=== PATIENT | female | born 1945 | race Hispanic/Latino ===

== ENCOUNTER 2018-08-04 20:42 | Emergency (ER) | payer MEDICARE ==
[~2018-08-04 20:42] MED LIST: BIMA12.5OS OD; IBUP200C5 PO; LOSA50TA25 PO; ROSU40 PO
== END 2018-08-04 21:27 | disposition home or self-care (01) ==
LOC: EDH 20:42
DX: S40.021A Contusion of right upper arm, initial encounter (principal); W46.0XXA Contact with hypodermic needle, initial encounter; Y93.89 Activity, other specified; Y92.238 Other place in hospital as the place of occurrence of the external cause; Y99.8 Other external cause status
CPT/HCPCS: 99281

== ENCOUNTER 2018-09-06 14:29 | Emergency (ER) | payer MEDICARE ==
[2018-09-06] MEDS ORDERED: SODIUM CHLORIDE 0.9% 1000ML 1,000 ML IV ONE (14:43)
[2018-09-06] MEDS ORDERED: DILTIAZEM HCL 5 MG/ML 10 ML VIAL IV ONE (14:44)
[2018-09-06 14:49] LABS: BASOPHILS % (AUTO) 0.7 % (0.0-5.0); EOSINOPHILS % (AUTO) 1.7 % (0.0-8.0); HEMATOCRIT 44.2 % (36-48); LYMPHOCYTES % (AUTO) 22.4 % (21.0-51.0); MEAN CORPUSCULAR HEMOGLOBIN 30.5 pg (27.0-33.0); MEAN CORPUSCULAR HGB CONC 33.4 g/dL (32.0-36.0); MEAN CORPUSCULAR VOLUME 91.1 fL (79-99); MONOCYTES % (AUTO) 7.8 % (3.0-13.0); NEUTROPHILS % (AUTO) 67.4 % (40.0-77.0); NUCLEATED RED BLOOD CELLS 0.1 % (0.0-0.19); PLATELET COUNT (AUTO) 132 K/uL (130-400); RED BLOOD CELL COUNT(AUTO) 4.85 MIL/uL (4.00-5.50); RED CELL DISTRIBUTION WIDTH 13.3 % (11.0-15.5); WHITE BLOOD COUNT (AUTO) 6.3 K/uL (4.8-10.8)
[2018-09-06 15:00] LABS: CREATININE 0.9 mg/dL (0.5-1.5); POTASSIUM 4.1 mmol/L (3.5-5.1)
[2018-09-06 15:12] LABS: APPEARANCE,URINE Clear (CLEAR); BILIRUBIN,URINE Negative (NEGATIVE); COLOR,URINE Dark Yellow (YELLOW); GLUCOSE, URINE (UA) Negative (NEGATIVE); KETONES,URINE Trace mg/dL (NEGATIVE); LEUKOCYTE ESTERASE ,URINE Small (NEGATIVE); NITRATE,URINE Negative (NEGATIVE); OCCULT BLOOD,URINE Negative (NEGATIVE); PH,URINE 5.5 (5.0-8.0); PROTEIN,URINE Negative (NEGATIVE)
[2018-09-06] MEDS ORDERED: ENOXAPARIN SODIUM 100 MG/1 ML SQ ONE (15:28)
[2018-09-06 15:50] LABS: BACTERIA,URINE Few /HPF (None Seen); RBC,URINE 0-1 /HPF (0-1)
[2018-09-06 15:53] LABS: MUCUS,URINE Rare LPF (None Seen); SQUAMOUS EPITHELIAL CELL,UR Few /HPF (0-2)
[2018-09-06 15:56] LABS: AMPHET/METH SCREEN,URINE NEGATIVE (NEGATIVE); BARBITURATE SCREEN, URINE NEGATIVE (NEGATIVE); BENZODIAZEPINES SCREEN,URINE NEGATIVE (NEGATIVE); CANNABINOID SCREEN,URINE NEGATIVE (NEGATIVE); COCAINE SCREEN,URINE NEGATIVE (NEGATIVE); OPIATE SCREEN,URINE NEGATIVE (NEGATIVE); PHENCYCLIDINE SCREEN,URINE NEGATIVE (NEGATIVE)
[2018-09-06 16:09] LABS: T4 (THYROXINE) 9.1 mcg/dL (4.7-13.3); THYROID STIMULATING HORMONE 2.44 uIU/mL (0.36-3.74)
[2018-09-06 17:36] LABS: INR 0.98 (0.85-1.15); PARTIAL THROMBOPLASTIN TIME 28.4 SEC (26.3-35.5); PROTHROMBIN TIME 10.3 SEC (9.6-11.6)
== END 2018-09-06 17:25 | disposition home or self-care (01) ==
LOC: EDH 14:29
DX: I48.91 Unspecified atrial fibrillation (principal); I10 Essential (primary) hypertension; Z98.890 Other specified postprocedural states
CPT/HCPCS: 36415; 80048; 80305; 81001; 84436; 84443; 85025; 85610; 85730; 93005 ×2; 96372; 96374; 99291; J1650; J3490; J7030

== ENCOUNTER → 2018-10-16 | Outpatient (CLI) | payer MEDICARE | END | disposition home or self-care (01) | LOC: SHCH 13:47 | PROVIDERS: ATTEND Internal Medicine Cardiovascular Disease | DX: I34.1 Nonrheumatic mitral (valve) prolapse (principal) | CPT/HCPCS: 93306 ==

== ENCOUNTER → 2019-07-18 | Outpatient (CLI) | payer MEDICARE ==
[~2019-07-18] MED LIST changes: -LOSA50TA25 PO; +METO-391 PO; +RIVA20TA PO; -ROSU40 PO
== END | disposition home or self-care (01) ==
LOC: RAH 13:55
PROVIDERS: ATTEND Family Medicine
DX: Z12.31 Encounter for screening mammogram for malignant neoplasm of breast (principal); D24.2 Benign neoplasm of left breast
CPT/HCPCS: 77067

== ENCOUNTER → 2019-07-26 | Outpatient (CLI) | payer MEDICARE | END | disposition home or self-care (01) | LOC: RAH 09:40 | PROVIDERS: ATTEND Family Medicine | DX: R10.10 Upper abdominal pain, unspecified (principal); R11.0 Nausea | CPT/HCPCS: 78227; A9537 ==

== ENCOUNTER → 2019-08-17 | Outpatient (CLI) | payer MEDICARE | END | disposition home or self-care (01) | LOC: RAH 08:42 | PROVIDERS: ATTEND Family Medicine | DX: N28.1 Cyst of kidney, acquired (principal); K76.89 Other specified diseases of liver; R16.1 Splenomegaly, not elsewhere classified | CPT/HCPCS: 76700 ==

== ENCOUNTER 2019-11-06 05:44 | Day surgery (SDC) | payer MEDICARE ==
[2019-11-01 11:30] LABS: BASOPHILS % (AUTO) 0.7 % (0.0-5.0); EOSINOPHILS % (AUTO) 2.9 % (0.0-8.0); HEMATOCRIT 44.2 % (36-48); LYMPHOCYTES % (AUTO) 17.8 % (21.0-51.0); MEAN CORPUSCULAR HEMOGLOBIN 29.7 pg (27.0-33.0); MEAN CORPUSCULAR HGB CONC 31.7 g/dL (32.0-36.0); MEAN CORPUSCULAR VOLUME 93.8 fL (79-99); MONOCYTES % (AUTO) 7.3 % (3.0-13.0); PLATELET COUNT (AUTO) 166 K/uL (130-400); RED BLOOD CELL COUNT(AUTO) 4.71 MIL/uL (4.00-5.50); RED CELL DISTRIBUTION WIDTH 12.9 % (11.0-15.5); WHITE BLOOD COUNT (AUTO) 5.9 K/uL (4.8-10.8)
[2019-11-01 11:37] LABS: CREATININE 0.7 mg/dL (0.5-1.5); POTASSIUM 4.9 mmol/L (3.5-5.1)
[2019-11-01 11:38] VITALS: BP 120/59
[2019-11-06] VITALS (17 sets, daily range): BP systolic 101–141; BP diastolic 49–77
[~2019-11-06] VITALS: Ht 165.1 cm; Wt 89.7 kg
[~2019-11-06 05:44] MED LIST changes: -BIMA12.5OS OD; +BIMA12.5OS OU; -IBUP200C5 PO; -METO-391 PO; +METO50TA9 PO; +ROSU10TA28 PO; +SODIUM CHLORIDE 0.9% 1000ML 1,000 ML IV SCH; +TYL3B PO
[2019-11-06] MEDS ORDERED: LACTATED RINGERS 1000ML 1,000 ML IV ONE (06:38)
--- NOTE | 2019-11-06 06:55 | NUR ---
SX SCD APPLIED TO BLE
[2019-11-06] MEDS ORDERED: MIDAZOLAM HCL 1 MG/ML 2ML VIAL ONE (07:14)
[2019-11-06] MEDS ORDERED: HEPARIN SODIUM 1000UNIT/ML 10ML VIAL ONE (07:14)
[2019-11-06] MEDS ORDERED: PROPOFOL 10 MG/ML 20ML VIAL IV ONE (07:14)
[2019-11-06] MEDS ORDERED: ROCURONIUM 10MG/1ML SYR 10 MG/ML ML ONE (07:14)
[2019-11-06] MEDS ORDERED: FENTANYL CITRATE PF 50 MCG/1 ML 2ML VIAL ONE (07:15)
[2019-11-06] MEDS ORDERED: DEXAMETHASONE SOD PHOSPHATE 4 MG/ML 1ML VIAL ONE (08:03)
[2019-11-06] MEDS ORDERED: ONDANSETRON HCL 4 MG/2 ML VIAL ONE ×2 (08:10→09:17)
[2019-11-06] MEDS ORDERED: PHENYLEPHRINE HCL 10 MG/ML 1ML VIAL IV ONE (08:10)
[2019-11-06] MEDS ORDERED: GLYCOPYRROLATE 1 MG/5 ML SYRINGE ONE (08:11)
[2019-11-06] MEDS ORDERED: NEOSTIGMINE 5MG/5ML SYR IV ONE (08:11)
[2019-11-06] MEDS ORDERED: KETOROLAC TROMETHAMINE 30MG/ML ONE (08:33)
[2019-11-06] MEDS ORDERED: MEPERIDINE-PF 25 MG/ML SYG ONE ×2 (08:57→09:08)
== END 2019-11-06 10:35 | disposition home or self-care (01) ==
LOC: DAH 05:44
PROVIDERS: ATTEND Surgery
DX: K80.10 Calculus of gallbladder with chronic cholecystitis without obstruction (principal); I10 Essential (primary) hypertension; E78.5 Hyperlipidemia, unspecified; I48.0 Paroxysmal atrial fibrillation; E66.01 Morbid (severe) obesity due to excess calories; Z68.31 Body mass index [BMI] 31.0-31.9, adult; Z98.890 Other specified postprocedural states; Z79.899 Other long term (current) drug therapy
CPT/HCPCS: 36415; 47562; 80048; 85025; 88305; 93005; A4215; A4221; A4222; A4223; A4450; A4600; A4663; A6260; C1769 ×4; J1100; J1644; J1885; J2175 ×2; J2250; J2370; J2405 ×2; J2704; J2710; J3010; J3490; J7030; J7120 ×2

== ENCOUNTER → 2020-07-18 | Outpatient (CLI) | payer MEDICARE ==
[~2020-07-18] MED LIST changes: -SODIUM CHLORIDE 0.9% 1000ML 1,000 ML IV SCH; -TYL3B PO
== END | disposition home or self-care (01) ==
LOC: RAH 15:12
PROVIDERS: ATTEND Family Medicine
DX: Z12.31 Encounter for screening mammogram for malignant neoplasm of breast (principal)
CPT/HCPCS: 77067

== ENCOUNTER → 2022-07-26 | Outpatient (CLI) | payer MEDICARE | END | disposition home or self-care (01) | LOC: RAH 14:52 | PROVIDERS: ATTEND Family Medicine | DX: Z12.31 Encounter for screening mammogram for malignant neoplasm of breast (principal) | CPT/HCPCS: 77067 ==

== ENCOUNTER 2023-01-02 19:17 | Emergency (ER) | payer MEDICARE ==
[~2023-01-02] VITALS: Ht 170.2 cm; Wt 97.3 kg
[2023-01-02 19:43] VITALS: BP 145/83
[2023-01-02 21:24] LABS: BASOPHILS % (AUTO) 0.3 % (0.0-5.0); HEMATOCRIT 41.9 % (36-48); LYMPHOCYTES % (AUTO) 20.1 % (21.0-51.0); MEAN CORPUSCULAR HEMOGLOBIN 30.2 pg (27.0-33.0); MEAN CORPUSCULAR HGB CONC 32.7 g/dL (32.0-36.0); MEAN CORPUSCULAR VOLUME 92.3 fL (79-99); NEUTROPHILS % (AUTO) 67.9 % (40.0-77.0); PLATELET COUNT (AUTO) 124 K/uL (130-400); RED BLOOD CELL COUNT(AUTO) 4.54 MIL/uL (4.00-5.50); RED CELL DISTRIBUTION WIDTH 13.8 % (11.0-15.5); WHITE BLOOD COUNT (AUTO) 6.8 K/uL (4.8-10.8)
[2023-01-02 21:30] LABS: CREATININE 1.1 mg/dL (0.5-1.5); POTASSIUM 3.9 mmol/L (3.5-5.1)
[2023-01-02 21:35] LABS: ALBUMIN 3.5 g/dL (3.5-5.0); TOTAL PROTEIN, SERUM 6.1 g/dL (6.0-8.3)
[2023-01-02] MEDS ORDERED: AMOX1TAB16 PO (21:51)
[2023-01-02] MEDS ORDERED: CEFTRIAXONE 1G VIAL IVP ONE (22:00)
== END 2023-01-02 22:12 | disposition home or self-care (01) ==
LOC: EDH 19:17
DX: L03.113 Cellulitis of right upper limb (principal); E78.00 Pure hypercholesterolemia, unspecified; I10 Essential (primary) hypertension; Z90.49 Acquired absence of other specified parts of digestive tract; Z79.899 Other long term (current) drug therapy; Z98.890 Other specified postprocedural states
CPT/HCPCS: 99284; 80053; 85025; 36415; 73130; J0696

== ENCOUNTER 2023-02-26 12:31 | Emergency (ER) | payer MEDICARE ==
[~2023-02-26] VITALS: Ht 167.6 cm; Wt 97.1 kg
[~2023-02-26 12:31] MED LIST changes: +AMOX1TAB16 PO; +MACR100 PO
[2023-02-26 13:30] VITALS: BP 150/80
== END 2023-02-26 13:42 | disposition home or self-care (01) ==
LOC: EDH 12:31
DX: S05.12XA Contusion of eyeball and orbital tissues, left eye, initial encounter (principal); E78.00 Pure hypercholesterolemia, unspecified; E11.9 Type 2 diabetes mellitus without complications; X58.XXXA Exposure to other specified factors, initial encounter; Y93.89 Activity, other specified; Y92.89 Other specified places as the place of occurrence of the external cause; Y99.8 Other external cause status
CPT/HCPCS: 99281

== ENCOUNTER → 2024-01-21 | Outpatient (CLI) | payer MEDICARE | END | disposition home or self-care (01) | LOC: SHCH 07:34 | PROVIDERS: ATTEND Internal Medicine Cardiovascular Disease | DX: I34.0 Nonrheumatic mitral (valve) insufficiency (principal); R07.9 Chest pain, unspecified; R06.09 Other forms of dyspnea; I51.89 Other ill-defined heart diseases | CPT/HCPCS: 93306 ==

== ENCOUNTER 2024-02-11 18:37 | Emergency (ER) | payer MEDICARE ==
[~2024-02-11] VITALS: Ht 167.6 cm; Wt 102.1 kg
[2024-02-11] MEDS: KETOROLAC 60 MG VIAL (30MG/ML) IM ONE (20:27)
[2024-02-11] MEDS ORDERED: DICL20GE TP (20:35)
[2024-02-11 21:30] VITALS: BP 142/58; PULSE 60; RESP 16; O2SAT 98
== END 2024-02-11 21:32 | disposition home or self-care (01) ==
LOC: EDH 18:37
DX: S40.021A Contusion of right upper arm, initial encounter (principal); S92.354A Nondisplaced fracture of fifth metatarsal bone, right foot, initial encounter for closed fracture; I10 Essential (primary) hypertension; E11.9 Type 2 diabetes mellitus without complications; Z79.899 Other long term (current) drug therapy; Z98.890 Other specified postprocedural states; W18.39XA Other fall on same level, initial encounter; Y93.89 Activity, other specified; Y92.89 Other specified places as the place of occurrence of the external cause; Y99.8 Other external cause status
CPT/HCPCS: 99284; 73630; 73060; 96372; J1885

== ENCOUNTER 2024-02-14 08:06 | Emergency (ER) | payer MEDICARE ==
[~2024-02-14] VITALS: Ht 170.2 cm; Wt 101.6 kg
[~2024-02-14 08:06] MED LIST changes: -AMOX1TAB16 PO; +DICL20GE TP; -MACR100 PO
[2024-02-14 08:07] VITALS: BP 141/79; PULSE 70; RESP 16
[2024-02-14] MEDS: HYDROCODONE/ACETAMINOPHEN 5/325 MG TAB PO ONE (09:21)
== END 2024-02-14 09:15 | disposition home or self-care (01) ==
LOC: EDH 08:06
DX: M79.671 Pain in right foot (principal); E11.9 Type 2 diabetes mellitus without complications; E78.00 Pure hypercholesterolemia, unspecified

== ENCOUNTER 2024-02-26 20:10 | Emergency (ER) | payer MEDICARE ==
[~2024-02-26] VITALS: Ht 154.9 cm; Wt 101.6 kg
[2024-02-26 21:17] VITALS: BP 169/75; PULSE 72; RESP 16; O2SAT 98
[2024-02-26] MEDS: ACETAMINOPHEN 325 MG TAB PO ONE (21:49)
== END 2024-02-26 23:06 | disposition home or self-care (01) ==
LOC: EDH 20:10
DX: S92.351A Displaced fracture of fifth metatarsal bone, right foot, initial encounter for closed fracture (principal); E11.9 Type 2 diabetes mellitus without complications; E78.00 Pure hypercholesterolemia, unspecified; I10 Essential (primary) hypertension; I25.10 Atherosclerotic heart disease of native coronary artery without angina pectoris; Z91.148 Patient's other noncompliance with medication regimen for other reason; W18.39XA Other fall on same level, initial encounter; Y93.89 Activity, other specified; Y92.89 Other specified places as the place of occurrence of the external cause; Y99.8 Other external cause status
CPT/HCPCS: 73030; 73060; 73630

== ENCOUNTER → 2024-09-25 | Outpatient (CLI) | payer MEDICARE ==
[~2024-09-25] MED LIST changes: -ROSU10TA28 PO; +ROSU10TA72 PO
--- NOTE | 2024-09-26 08:52 | HMCIMG ---
SCREENING MAMMOGRAM REASON: Annual Exam COMPARISON: 07/26/2022 TECHNIQUE: CC and MLO views of the bilateral breasts were performed.CAD was performed as well. FINDINGS: Parenchymal density: There are scattered areas of fibroglandular density. There are no focal mass lesions. There are no pathologic appearing calcifications. There is no evidence of architectural distortion or skin thickening. IMPRESSION: Normal screening mammogram The patient was entered into a reminder system with a target due date for their next mammogram. BI-RADS CATEGORY 1: NEGATIVE Recommend monthly self breast exam as well as annual clinical examination. A negative x-ray should not delay biopsy if a dominant or clinically suspicious mass is present, since 8-10% of cancers are not identified by mammography. Dense breasts particularly, may obscure an underlying neoplasm. Some of these may be detected clinically and therefore, clinical examination is an essential part of breast evaluation.
== END | disposition home or self-care (01) ==
LOC: RAH 13:59
PROVIDERS: ATTEND Family Medicine
DX: Z12.31 Encounter for screening mammogram for malignant neoplasm of breast (principal); R92.323 Mammographic fibroglandular density, bilateral breasts
CPT/HCPCS: 77067

== ENCOUNTER 2025-10-27 01:41 | Emergency (ER) | payer MEDICARE ==
[~2025-10-27] VITALS: Ht 167.6 cm; Wt 99.5 kg
[~2025-10-27 01:41] MED LIST changes: -ROSU10TA72 PO; +ROSU10TA98 PO
[2025-10-27] MEDS: guaiFENesin-DM 200/20MG 10ML PO ONE (02:28)
--- NOTE | 2025-10-27 02:30 | ERN ---
ED Note History of Present Illness Stated Complaint: SWEATING, BILATERAL FEET NUMBNESS, CONGESTION Chief Complaint: Multiple Complaints Time Seen by MD: 01:45 Time Seen by Midlevel: 01:45 Dictation: The patient is a 80-year-old female with a history of hypertension who presents to the emergency department with complaints of cough with green sputum, weakness and fevers onset two weeks ago. Patient reports she saw her PCP and was prescribed azithromycin which she has been taking for two days. Patient reports no improvement with the antibiotics. Denies any shortness of breath denies any chest pain. Denies any nausea or vomiting. Patient also reports that she has been having lower extremity numbness bilaterally for three weeks. Reports her PCP told her that she just needed to walk more. Patient is poor historian. Allergies: Coded Allergies: No Known Drug Allergies (Unverified Allergy, Unknown, 12/23/16) Home Meds Active Scripts Diclofenac Sodium (Voltaren Arthritis Pain) 1 % Gel..gram., 20 GM TP TID for 30 Days, #400 GM Prov:JESUSITA ZAPATA 02/11/24 Reported Medications Rosuvastatin Calcium (Rosuvastatin Calcium) 10 Mg Tablet, 10 MG PO HS, TAB 11/01/19 Metoprolol Succinate (Toprol Xl) 50 Mg Tab.er.24h, 50 MG PO HS, TAB 11/01/19 Rivaroxaban (Xarelto) 20 Mg Tablet, 20 MG PO HS, TAB 11/01/19 Bimatoprost (Lumigan 0.01% Ophth Soln) 20 Drop/Ml Opsol, 1 DROP OU HS, DROP 12/23/16 Past Medical History Past Medical History: CAD, Diabetes-Type II, High Cholesterol, Hypertension, Other Additional Past Medical Hx: PT DENIES ALL ABOVE MEDICAL HISTORY. DENIES TAKING MEDICATIONS Surgical History: None Surgical History Other: BILATERAL KNEE REPLACEMENT RN Note Reviewed/Agreed w/PFSH: Yes Review of System Dictation Constitutional: Negative for chills, and weight loss fever Eyes: Negative for injury, pain,redness, and discharge ENT: Negative for injury,pain or swelling Cardiovascular: Negative for chest pain, palpitations, and edema Respiratory: Negative for shortness of breath, and wheezing, cough Abdomen/GI: Negative for abdominal pain, nausea, vomiting, diarrhea, and constipation Back: Negative for injury and pain : Negative for injury, bleeding and discharge MS/Extremity: Negative for injury and deformity Skin: Negative for rash, and discoloration Neuro: Negative for headache, weakness, , tingling, and seizure lower extremity numbness Psych: Negative for suicide ideation, homicidal ideation, and hallucinations Initial Vital Sign VS Vital Signs Date Time Temp Pulse Resp B/P (MAP) Pulse Ox O2 Delivery O2 Flow Rate FiO2 10/27/25 01:43 98.4 101 20 162/93 95 Room Air 10/27/25 02:17 0 21 Physical Exam Dictation Vital Signs reviewed General Appearance: Alert, oriented x 3, mild distress, well developed, nourished. Head and Face: non-traumatic. Eyes: PERRL, pink conjunctivas, eyelid no trauma, anterior chamber with arcus senilis. Ears: Pinnas intact and no signs of trauma or erythema ear canals clear and no discharge TM no erythema Nose: No discharge, no bleeding. Oropharynx: Mouth normal, tongue pink. pharynx clear,no erythema, tonsils no exudates, no abscesses noted, mucous membrane moist Neck: Supple, non-tender, no thyromegaly, no masses, no JVD, no bruits Breast:Deferred Chest:No tenderness, no crepitus, no paradoxical movement, no retractions Lungs:Clear, well-ventilated, symmetric, no rales, no wheezing, no rhonchi, no stridor, diminished sounds bilaterally Heart: Regular rate, regular rhythm, no murmur, no gallops Vascular: no peripheral edema, Abdomen: Soft, positive bowel sounds, nondistended, no guarding, nontender, no rebound, no masses no hepatomegaly, no splenomegaly, no Griffiths's sign, no hernias. Rectal: Deferred Genital: Deferred Neurological: Normal speech, motor function intact, sensory function intact Musculoskeletal: Neck nontender, full range of motion, back nontender, full range of motion, Extremities: nontender, full range of motion Skin: Color pink, dry, no turgor, no rash, no lacerations, no abrasions, no contusions. Lymphatic: Deferred Results (Laboratory/Radiology) Laboratory/Radiology Laboratory Tests Test 10/27/25 02:25 White Blood Count 5.1 K/uL (4.8-10.8) Red Blood Count 4.36 MIL/uL (4.00-5.50) Hemoglobin 13.4 g/dL (12.0-16.0) Hematocrit 39.9 % (36-48) Mean Corpuscular Volume 91.5 fL (79-99) Mean Corpuscular Hemoglobin 30.7 pg (27.0-33.0) Mean Corpuscular Hemoglobin Concent 33.6 g/dL (32.0-36.0) Red Cell Distribution Width 12.7 % (11.0-15.5) Platelet Count 161 K/uL (130-400) Mean Platelet Volume 10.2 fL (7.5-10.5) Immature Granulocyte % (Auto) 2.3 % (0-1) H Neutrophils (%) (Auto) 66.6 % (40.0-77.0) Lymphocytes (%) (Auto) 17.0 % (21.0-51.0) L Monocytes (%) (Auto) 9.0 % (3.0-13.0) Eosinophils (%) (Auto) 4.3 % (0.0-8.0) Basophils (%) (Auto) 0.8 % (0.0-5.0) Neutrophils # (Auto) 3.4 K/uL (1.8-7.7) Lymphocytes # (Auto) 0.9 K/uL (1.0-4.8) L Monocytes # (Auto) 0.5 K/uL (0.1-1.0) Eosinophils # (Auto) 0.22 K/uL (0.00-0.70) Basophils # (Auto) 0.04 K/uL (0.00-0.20) Absolute Immature Granulocyte (auto 0.12 K/uL (0-1) Nucleated Red Blood Cells 0.0 % (0.0-0.19) Sodium Level 141 mmol/L (136-145) Potassium Level 3.6 mmol/L (3.5-5.1) Chloride Level 103 mmol/L (101-111) Carbon Dioxide Level 27 mmol/L (21-32) Blood Urea Nitrogen 13 mg/dL (7-18) Creatinine 0.7 mg/dL (0.5-1.0) Glomerular Filtration Rate Calc 88 mL/min (>90) Random Glucose 131 mg/dL (70-105) H Total Calcium 8.8 mg/dL (8.5-10.1) Magnesium Level 1.90 mg/dL (1.80-2.40) Troponin I High Sensitivity 16 ng/L (4-50) B-Type Natriuretic Peptide 94 pg/mL (0-100) Influenza Type A Antigen Negative For Type A Influenza Type B Antigen Negative For Type B SARS-CoV-2 Antigen (Rapid) PRESUMPTIVE NEGATIVE Labs Reviewed?: Yes ED Course ED Course Orders Procedure Category Date Status Time Cbc With Differential LAB 10/27/25 Complete 02:06 Chest 1vw RAD 10/27/25 Resulted 02:06 12 Lead Ekg Tracing- EKG 10/27/25 Logged Technical 02:06 Magnesium LAB 10/27/25 Complete 02:06 Troponin I High LAB 10/27/25 Complete Sensitivity 02:06 Urinalysis Profile LAB 10/27/25 Logged 02:06 Basic Metabolic Panel LAB 10/27/25 Complete 02:06 Covid19 (Sars Antigen LAB 10/27/25 Complete Rapid) 02:06 Influenza Type A & B, LAB 10/27/25 Complete Rapid 02:06 B-Type Natriuretic LAB 10/27/25 Complete Peptide 02:06 Methylprednisolone PHA 10/27/25 Complete Succ 125mg (Solu-Medr 02:30 Ipratropium/Albuterol PHA 10/27/25 Complete Neb (Duoneb) 02:30 Guaifenesin-Dm PHA 10/27/25 Complete 200/20mg 10ml 02:30 0.9%Nacl 1000ml (Ns PHA 10/27/25 In Process 1000ml) 04:00 Current Medications Medications (Trade) Dose Ordered Sig/Cleo Route PRN Reason Start Time Stop Time Status Last Admin Dose Admin Albuterol (DUOneb) 1 UDVIAL ONCE ONCE IH 10/27/25 02:30 10/27/25 02:31 DC 10/27/25 02:38 Guaifenesin/ Dextromethorphan (RobiTUSSin DM 200/20MG 10ML) 5 ml ONCE ONCE PO 10/27/25 02:30 10/27/25 02:31 DC 10/27/25 02:28 Methylprednisolone Sodium Succinate (Solu-medROL 125MG) 80 mg ONCE ONCE IVP 10/27/25 02:30 10/27/25 02:31 DC 10/27/25 02:28 Sodium Chloride 1,000 ml @ 0 mls/hr ONCE ONCE IV 10/27/25 04:00 10/27/25 04:01 Vital Signs Date Time Temp Pulse Resp B/P (MAP) Pulse Ox O2 Delivery O2 Flow Rate FiO2 10/27/25 02:38 89 20 10/27/25 02:17 98.4 92 26 157/95 91 Room Air* 0 21 10/27/25 01:43 98.4 101 20 162/93 95 Room Air Medical Decision Making MDM The patient is a 80-year-old female with a history of hypertension who presents to the emergency department with complaints of cough with green sputum, weakness and fevers onset two weeks ago. Patient reports she saw her PCP and was prescr ibed azithromycin which she has been taking for two days. Patient reports no improvement with the antibiotics. Denies any shortness of breath denies any chest pain. Denies any nausea or vomiting. Patient also reports that she has been having lower extremity numbness bilaterally for three weeks. Reports her PCP told her that she just needed to walk more. Differential diagnosis: Influenza, COVID, RSV, streptococcal pharyngitis, otitis media, acute viral syndrome, COPD exacerbation, congestive heart failure, restrictive ventilatory impairment due to obesity and poor endurance, pulmonary embolus, bilateral pneumonia Patient responded to small dose of steroids and bronchodilator therapy and feels amazing. She felt like the antibiotic alone was not enough for her. I reviewed the labs CBC BNP 7 are completely within normal limits. Brain natriuretic peptide is 94 magnesium 1.8 troponins are negative chest x-ray is unremarkable for any acute pneumonia. Nasopharyngeal swabs were negative for influenza and COVID. After the patient and her were updated and I educated them on inflammatory state of the lungs with a any infection, they wanted to be discharged to home with outpatient medications. Rationale: Tests considered and ordered secondary to shared decision making include: Labs and chest x-ray Previous outside records reviewed: Old ER visits. Risk of complication and/or morbidity or mortality of patient management: None Medications-Per medication reconciliation Need for hospitalization: Patient does not meet criteria for hospitalization. Need for emergency major/minor surgery: No There are no social concerns with this patient. Prescription drug management Prescriptions will include symptomatic care Patient's prior external medical records from other ER visits were reviewed by me as indicated. Prior testing and results from previous visits were reviewed. Prior tests were taken into account with medical decision making and resource utilization, independent historian/historians were used to obtain complete medical history. I independently interpreted the test that were performed, results were reviewed by me and considered findings on radiology if ordered. Medical management and examination interpretation discussions were had by me with other qualified healthcare professionals as indicated for the patient's care. DX & DISP Disposition: Discharge Departure Impression: Primary Impression: Acute bronchitis Additional Impressions: Bronchospasm, URI with cough and congestion Condition: Stable Scripts Albuterol Sulfate (Ventolin Hfa/Proventil Hfa/Proair Hfa) 90 Mcg Puff 1 PUFF IH Q4H PRN for SHORTNESS OF BREATH for 5 Days, #1 INH 0 Refills PHARMACY TO DISPENSE 1 INHALER FOR USE Prov: GWEN MILLARD MD 10/27/25 Prednisone (Prednisone) 20 Mg Tablet 1 TAB PO AD for 6 Days, #14 TAB 0 Refills TAKE 1 TAB BY MOUTH THREE TIMES PER DAY X3 DAYS, THEN TAKE 1 TAB BY MOUTH TWICE A DAY X2 DAYS, THEN TAKE 1 TAB BY MOUTH ONCE A DAY X1 DAY. Prov: GWEN MILLARD MD 10/27/25 Additional Instructions: Patient and the caregiver have been informed of all the diagnostic tests and the imaging conducted during the today's visit to the emergency room and has verbalized understanding of the results I have personally reviewed and interpreted all diagnostic exams performed here in the ER today as well as the vital signs documented by the nursing staff. The patient is now being discharged to home and should follow up with the primary care physician or the specialist as directed by the ER staff. Please stay hydrated and continue the Z-Raz full course given by your primary care physician. Prescriptions for the medications given to you while you were in the emergency room has been sent to the pharmacy If your symptoms worsen please return to the ER Referrals: MELODY ABRAHAM MD (PCP) YUVAL DIANA Oct 27, 2025 02:30 GWEN MILLARD MD Oct 27, 2025 03:52
[2025-10-27 02:38] VITALS: PULSE 89; RESP 20
[2025-10-27 02:46] LABS: IMMATURE GRANULOCYTE ABSOLUTE 0.12 K/uL (0-1); NUCLEATED RED BLOOD CELLS 0.0 % (0.0-0.19); PLATELET COUNT (AUTO) 161 K/uL (130-400); RED BLOOD CELL COUNT(AUTO) 4.36 MIL/uL (4.00-5.50); RED CELL DISTRIBUTION WIDTH 12.7 % (11.0-15.5); WHITE BLOOD COUNT (AUTO) 5.1 K/uL (4.8-10.8)
[2025-10-27 02:54] LABS: CREATININE 0.7 mg/dL (0.5-1.0); GLOMERULAR FILTR. RATE CALC 88.0 mL/min (>90); GLUCOSE,RANDOM 131.0 mg/dL (70-105); SODIUM SERUM 141.0 mmol/L (136-145); UREA NITROGEN, BLOOD 13.0 mg/dL (7-18)
[2025-10-27 03:04] LABS: COVID19 (SARS ANTIGEN RAPID) PRESUMPTIVE NEGATIVE (NEGATIVE); INFLUENZA TYPE A Negative For Type A (NEGATIVE); INFLUENZA TYPE B Negative For Type B (NEGATIVE)
--- NOTE | 2025-10-27 03:35 | HMCIMG ---
EXAM: CR Chest, 1 View. CLINICAL HISTORY: cough COMPARISON: None provided. FINDINGS: LUNGS: The lungs show no infiltrate or other acute finding. PLEURAL SPACES: No evidence of pleural effusion or pneumothorax. MEDIASTINUM: Cardiac size and mediastinal contours are within normal limits. BONES: No aggressive appearing osseous lesion. IMPRESSION: No acute cardiopulmonary pathology is evident. /[place]
[2025-10-27] MEDS ORDERED: PRED20TA3 PO (03:52)
[2025-10-27] MEDS ORDERED: ALBUHFA IH (03:52)
[2025-10-27] MEDS: 0.9%NACL 1000ML 1,000 ML IV ONE (04:09)
[2025-10-27 04:12] LABS: APPEARANCE,URINE CLOUDY (CLEAR); GLUCOSE, URINE (UA) NEGATIVE (NEGATIVE); LEUKOCYTE ESTERASE ,URINE 75 Leu/uL (NEGATIVE); NITRATE,URINE NEGATIVE (NEGATIVE); OCCULT BLOOD,URINE +- (TRACE) (NEGATIVE)
[2025-10-27 04:14] LABS: ADD UA MICROSCOPIC YES
[2025-10-27 04:19] LABS: SQUAMOUS EPITHELIAL CELL,UR MANY /HPF (0-2)
[2025-10-27 04:37] VITALS: BP 150/82; PULSE 72; RESP 20; TEMP 98.5; O2SAT 95
--- NOTE | 2025-10-28 06:38 | EKG ---
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
== END 2025-10-27 04:39 | disposition home or self-care (01) ==
LOC: EDH 01:41
DX: J20.9 Acute bronchitis, unspecified (principal); J06.9 Acute upper respiratory infection, unspecified; E11.9 Type 2 diabetes mellitus without complications; E78.00 Pure hypercholesterolemia, unspecified; I10 Essential (primary) hypertension; I25.10 Atherosclerotic heart disease of native coronary artery without angina pectoris; Z20.822 Contact with and (suspected) exposure to COVID-19; Z96.653 Presence of artificial knee joint, bilateral
CPT/HCPCS: 99285; 96374; 71045; 87426; 83735; 84484; 80048; 83880; 85025; 87086; 87804 ×2; 81001; 36415; 93005; 94640; J2919; J7030; 96365